=== PATIENT | female | born 1985 | race Two or more races ===

== ENCOUNTER 2017-06-30 11:56 | Emergency (ER) | payer OTHER ==
[2017-06-30 13:53] LABS: URINE BLOOD (Dip) POC 2+ (NEGATIVE); URINE GLUCOSE (Dip) POC Negative (NEGATIVE); URINE KETONES (Dip) POC Negative (NEGATIVE); URINE LEUKOCYTE EST (Dip) POC Negative (NEGATIVE); URINE NITRITE (Dip) POC Negative (NEGATIVE); URINE TOTAL PROTEIN POC Negative (NEGATIVE)
[2017-06-30 13:53] LABS: URINE PH (Dip) POC 6.5 (5.0-8.5)
[2017-06-30 14:05] LABS: ADD UMIC YES; UR ASCORBIC ACID NEGATIVE (NEGATIVE); UR BILIRUBIN (Dip) NEGATIVE (NEGATIVE); UR BLOOD (Dip) 2+ mg/dL (NEGATIVE); UR CLARITY CLEAR (CLEAR); UR COLOR YELLOW (YELLOW); UR GLUCOSE (Dip) NEGATIVE (NEGATIVE); UR KETONES (Dip) NEGATIVE (NEGATIVE); UR LEUKOCYTE ESTERASE (Dip) NEGATIVE Leu/ul (NEGATIVE); UR NITRITE (Dip) NEGATIVE (NEGATIVE); UR RBC 53 /HPF (0-5); UR SPECIFIC GRAVITY (Dip) 1.014 (1.003-1.030); UR SQUAMOUS EPITHELIAL CELL FEW /HPF (FEW); UR TOTAL PROTEIN (Dip) NEGATIVE (NEGATIVE); UR UROBILINOGEN (Dip) NEGATIVE (NEGATIVE); UR WBC 1 /HPF (0-5)
[2017-06-30] MEDS: KETOROLAC 30 MG INJ IM (14:15)
[2017-06-30] MEDS: DOXYCYCLINE 100 MG TAB PO (15:24)
[2017-06-30] MEDS: CEFTRIAXONE 1 GM INJ IM (15:24)
[2017-06-30] MEDS: LIDOCAINE 1% (MDV) 20 ML INJ SC (15:25)
== END 2017-06-30 15:41 | disposition home or self-care (01) ==
LOC: FTE 11:56
DX: R10.2 Pelvic and perineal pain (principal)
CPT/HCPCS: 76830; 76856; 81001; 81003; 81025; 87591; 96372; 99285-25